=== PATIENT | female | born 1970 ===

== ENCOUNTER → 2018-07-18 | Outpatient (REF) | payer SELFPAY | LOC: M LAB LCGH 11:43 | PROVIDERS: ATTEND Surgery | DX: T17.520A Food in bronchus causing asphyxiation, initial encounter (principal) ==

== ENCOUNTER → 2018-11-26 | Outpatient (REF) | LOC: M LAB LCGH 15:38 | PROVIDERS: ATTEND Physician Assistant | DX: D48.5 Neoplasm of uncertain behavior of skin (principal) ==